=== PATIENT | female | born 1995 | race Hispanic/Latino ===

== ENCOUNTER → 2018-07-16 | Outpatient (CLI) | payer OTHER | END | disposition home or self-care (01) | LOC: LAB 15:47 | PROVIDERS: ATTEND Obstetrics & Gynecology | DX: N91.2 Amenorrhea, unspecified (principal) | CPT/HCPCS: 36415; 82670; 83001; 83002; 84144; 84402; 84403; 84439; 84443; 84481 ==

== ENCOUNTER → 2018-09-10 | Outpatient (CLI) | payer OTHER | END | disposition home or self-care (01) | LOC: RAH 13:23 | PROVIDERS: ATTEND Obstetrics & Gynecology | DX: N92.6 Irregular menstruation, unspecified (principal); N88.8 Other specified noninflammatory disorders of cervix uteri | CPT/HCPCS: 76856 ==

== ENCOUNTER 2018-11-26 18:42 | Emergency (ER) | payer OTHER ==
[2018-11-26 19:50] LABS: BASOPHILS % (AUTO) 0.5 % (0.0-5.0); HEMATOCRIT 39.8 % (36-48); LYMPHOCYTES % (AUTO) 31.9 % (21.0-51.0); MEAN CORPUSCULAR HEMOGLOBIN 29.8 pg (27.0-33.0); MEAN CORPUSCULAR HGB CONC 34.4 g/dL (32.0-36.0); MEAN CORPUSCULAR VOLUME 86.4 fL (79-99); MONOCYTES % (AUTO) 3.7 % (3.0-13.0); NEUTROPHILS % (AUTO) 61.9 % (40.0-77.0); PLATELET COUNT (AUTO) 293 K/uL (130-400); RED BLOOD CELL COUNT(AUTO) 4.61 MIL/uL (4.00-5.50); RED CELL DISTRIBUTION WIDTH 13.6 % (11.0-15.5)
[2018-11-26 20:00] LABS: CREATININE 0.6 mg/dL (0.5-1.5); POTASSIUM 4.2 mmol/L (3.5-5.1)
[2018-11-26 20:54] LABS: HCG,QUAL RESULT NEGATIVE (NEGATIVE)
[2018-11-26 20:57] LABS: BILIRUBIN,URINE SMALL (NEGATIVE); GLUCOSE, URINE (UA) NEGATIVE (NEGATIVE); KETONES,URINE NEGATIVE (NEGATIVE); LEUKOCYTE ESTERASE ,URINE SMALL (NEGATIVE); NITRATE,URINE NEGATIVE (NEGATIVE); OCCULT BLOOD,URINE LARGE (NEGATIVE); PH,URINE 7.5 (5.0-8.0); PROTEIN,URINE >=300 (NEGATIVE)
[2018-11-26 20:58] LABS: APPEARANCE,URINE BLOODY (CLEAR); BACTERIA,URINE Few /HPF (None Seen); COLOR,URINE RED (YELLOW); RBC,URINE Full Field /HPF (0-1); SQUAMOUS EPITHELIAL CELL,UR None Seen /HPF (0-2)
== END 2018-11-26 21:18 | disposition home or self-care (01) ==
LOC: EDH 18:42
DX: N39.0 Urinary tract infection, site not specified (principal); N93.9 Abnormal uterine and vaginal bleeding, unspecified; Z88.6 Allergy status to analgesic agent
CPT/HCPCS: 36415; 80048; 81001; 81025; 85025

== ENCOUNTER 2019-04-15 15:22 | Emergency (ER) | payer OTHER ==
[2019-04-15 16:13] LABS: APPEARANCE,URINE Cloudy (CLEAR); BILIRUBIN,URINE Negative (NEGATIVE); COLOR,URINE Yellow (YELLOW); GLUCOSE, URINE (UA) Negative (NEGATIVE); HCG,QUAL RESULT NEGATIVE (NEGATIVE); KETONES,URINE Negative (NEGATIVE); LEUKOCYTE ESTERASE ,URINE Small (NEGATIVE); NITRATE,URINE Negative (NEGATIVE); OCCULT BLOOD,URINE Negative (NEGATIVE); PROTEIN,URINE Negative (NEGATIVE)
[2019-04-15] MEDS ORDERED: LIDOCAINE 5% TOPICAL PATCH TP ONE (16:13)
[2019-04-15 16:28] LABS: BACTERIA,URINE Few /HPF (None Seen); RBC,URINE 0-1 /HPF (0-1); SQUAMOUS EPITHELIAL CELL,UR Moderate /HPF (0-2)
== END 2019-04-15 17:16 | disposition home or self-care (01) ==
LOC: EDH 15:22
DX: S16.1XXA Strain of muscle, fascia and tendon at neck level, initial encounter (principal); M54.12 Radiculopathy, cervical region; X58.XXXA Exposure to other specified factors, initial encounter; Y93.89 Activity, other specified; Y92.89 Other specified places as the place of occurrence of the external cause; Y99.8 Other external cause status
CPT/HCPCS: 81001; 81025

== ENCOUNTER 2021-08-25 10:35 | Emergency (ER) | payer OTHER ==
[~2021-08-25] VITALS: Ht 165.1 cm; Wt 117.9 kg
[2021-08-25 10:36] VITALS: BP 132/77
[2021-08-25] MEDS ORDERED: IBUPROFEN 600 MG TABLET PO SCH (12:30)
== END 2021-08-25 12:47 | disposition home or self-care (01) ==
LOC: EDH 10:35
DX: J06.9 Acute upper respiratory infection, unspecified (principal); Z20.822 Contact with and (suspected) exposure to COVID-19; E66.01 Morbid (severe) obesity due to excess calories; Z68.41 Body mass index [BMI] 40.0-44.9, adult; Z79.1 Long term (current) use of non-steroidal anti-inflammatories (NSAID)
CPT/HCPCS: 87635; 87804 ×2; 87880; 99283; C9803

== ENCOUNTER 2021-10-31 23:57 | Emergency (ER) | payer OTHER ==
[~2021-10-31] VITALS: Ht 165.1 cm; Wt 122.9 kg
[2021-10-31 23:59] VITALS: BP 145/91
[2021-11-01] MEDS ORDERED: GUAI5LIQ10 PO (00:53)
[2021-11-01] MEDS ORDERED: IBUP-2070 PO (00:53)
[2021-11-01] MEDS ORDERED: IBUPROFEN 600 MG TABLET PO ONE (01:00)
== END 2021-11-01 01:11 | disposition home or self-care (01) ==
LOC: EDH 23:57
DX: U07.1 COVID-19 (principal); E11.9 Type 2 diabetes mellitus without complications
CPT/HCPCS: 87635; 87804 ×2; 99283; C9803

== ENCOUNTER 2022-03-18 10:14 | Emergency (ER) | payer OTHER ==
[~2022-03-18] VITALS: Ht 162.6 cm; Wt 122.5 kg
[~2022-03-18 10:14] MED LIST: GUAI5LIQ10 PO; IBUP-2070 PO
[2022-03-18 10:44] LABS: BASOPHILS % (AUTO) 0.2 % (0.0-5.0); EOSINOPHILS % (AUTO) 1.3 % (0.0-8.0); HEMATOCRIT 39.3 % (36-48); LYMPHOCYTES % (AUTO) 22.1 % (21.0-51.0); MEAN CORPUSCULAR HEMOGLOBIN 29.4 pg (27.0-33.0); MEAN CORPUSCULAR HGB CONC 33.1 g/dL (32.0-36.0); MEAN CORPUSCULAR VOLUME 88.9 fL (79-99); MONOCYTES % (AUTO) 3.7 % (3.0-13.0); NEUTROPHILS % (AUTO) 72.5 % (40.0-77.0); PLATELET COUNT (AUTO) 266 K/uL (130-400); RED BLOOD CELL COUNT(AUTO) 4.42 MIL/uL (4.00-5.50); RED CELL DISTRIBUTION WIDTH 12.4 % (11.0-15.5)
[2022-03-18 11:06] LABS: ALBUMIN 3.8 g/dL (3.5-5.0); BILIRUBIN,TOTAL 0.5 mg/dL (0.2-1.0); CREATININE 0.7 mg/dL (0.5-1.5); POTASSIUM 3.8 mmol/L (3.5-5.1); TOTAL PROTEIN, SERUM 7.9 g/dL (6.0-8.3)
[2022-03-18] MEDS ORDERED: KETOROLAC 15MG/ML VIAL (15MG/ML) IM ONE (11:30)
[2022-03-18 11:43] VITALS: BP 139/85
== END 2022-03-18 11:40 | disposition home or self-care (01) ==
LOC: EDH 10:14
DX: N93.8 Other specified abnormal uterine and vaginal bleeding (principal)
CPT/HCPCS: 36415; 80053; 84702; 85025; 96372; 99283; J1885

== ENCOUNTER → 2022-03-26 | Outpatient (CLI) | payer OTHER | END | disposition home or self-care (01) | LOC: RAH 14:46 | PROVIDERS: ATTEND Obstetrics & Gynecology | DX: N92.1 Excessive and frequent menstruation with irregular cycle (principal) | CPT/HCPCS: 76856 ==